=== PATIENT | male | born 1955 | race Hispanic/Latino ===

== ENCOUNTER 2018-02-09 10:20 | Inpatient (IN) | payer MEDICAID, SELFPAY ==
[~2018-02-09 10:20] MED LIST: Iopamidol 370 76% 100 ML VIAL ONE
[2018-02-09] MEDS ORDERED: Furosemide 40 MG/4 ML VIAL ONE (11:06)
[2018-02-09 11:50] LABS: #Basophils 0.1 thou/uL (0.0-0.2); #Eosinphils 0.3 thou/uL (0.0-0.7); White Blood Cell (WBC) Count 9.5 thou/uL (4.8-10.8)
[2018-02-09 11:58] LABS: INR-International Normal Ratio 1.4; Prothrombin Time 17.3 SEC (12.0-14.7)
[2018-02-09 11:59] LABS: PTT 34.2 SEC (22.9-36.1)
[2018-02-09 12:00] LABS: #Lymphocytes 2.7 thou/uL (1.20-3.40); #Monocytes 1.1 thou/uL (0.11-0.59); #Neutrophils 5.4 thou/uL (1.40-6.50); %Basophils 0.8 % (0.0-1.0); %Eosinophils 2.8 % (0.0-10.0); %Lymphocytes 28.3 % (21.0-51.0); %Monocytes 11.6 % (0.0-10.0); %Neutrophils 56.6 % (42.0-75.0); Hemoglobin 15.3 g/dL (14.0-18.0); Mean Corpuscular HGB CONC 32.5 g/dL (32.0-36.0); Mean Corpuscular Hemoglobin 31.1 pg (27.0-31.0); Mean Corpuscular Volume 95.8 fL (78.0-98.0); Mean Platelet Volume 11.8 fL (7.4-10.4); Platelet Count 161 thou/uL (130-400); RBC Distribution Width 13.4 % (11.5-14.5); Red Blood Cell (RBC) Count 4.91 mill/uL (4.70-6.10)
--- NOTE | 2018-02-09 12:04 | RAD ---
PORTABLE AP CHEST RADIOGRAPH: Date: 02-09-18 History: Shortness of breath. Difficulty breathing. Comparison: None available. FINDINGS: The cardiac silhouette is enlarged. Pulmonary vasculature is within normal limits. Lungs are clear. O sseous structures are intact. IMPRESSION: 1. No acute cardiopulmonary process. 2. Cardiomegaly. POS: [facility]
[2018-02-09 12:07] LABS: D-Dimer Test 4.18 *mcg/mL (0.27-0.43)
[2018-02-09 12:20] LABS: ALT (SGPT) 18 U/L (8-55); AST (SGOT) 39 U/L (5-34); Albumin 3.6 g/dL (3.4-4.8); Alkaline Phosphatase 165 U/L (40-150); Anion Gap 12 mmol/L (10-20); BUN (Urea Nitrogen) 17 mg/dL (8.4-25.7); CK (CPK) 111 U/L (30-200); Calc. Creatinine Clearance 0 mL/min (70-130); Calcium 8.7 mg/dL (7.8-10.44); Carbon Dioxide 23 mmol/L (23-31); Chloride 105 mmol/L (98-107); Estimated GFR-MDRD Greater than 90; Globulin 3.4 g/dL (2.4-3.5); Glucose 94 mg/dL (80-115); Lipase 20 U/L (8-78); Potassium 4.2 mmol/L (3.5-5.1); Sodium 136 mmol/L (136-145)
[2018-02-09 12:25] LABS: CKMB 4.1 ng/mL (0-6.6); Troponin I 0.045 ng/mL (< 0.028)
--- NOTE | 2018-02-09 13:52 | ULT ---
RIGHT UPPER QUADRANT ULTRASOUND: Date: 02-09-18 History: Elevated liver enzymes and abdominal distension. Comparison: None available. FINDINGS: Gallbladder has a normal appearance. No gallbladder calculi are seen. There is no gallbladder wall th ickening or pericholecystic fluid. The common duct measures 0.4 cm in diameter which is within normal limits. Liver demonstrates a grossly normal sonographic appearance. No focal hepatic lesion is seen. Some of the images question the hepatic echotexture, but additional obtained images demonstrate a more normal appearance of the liver and findings could be related to technique. The majority of the pancreas is obscured by bowel gas. The very limited visualized portion of the manzanares creatic head demonstrate a grossly normal sonographic appearance. The visualized portions of the IVC and right kidney demonstrate a normal sonographic appearance. The right kidney measures 11.4 cm in le ngth. There is a small amount of intraperitoneal free fluid and suggestion of a small right pleural effusio n, incompletely imaged or evaluated. IMPRESSION: 1. No gallbladder calculi are seen. The common duct is normal in caliber. 2. Nonvisualization of the majority of the pancreas. 3. Small amount of ascites with suggestion of small right pleural effusion. POS: [facility]
--- NOTE | 2018-02-09 14:18 | CT ---
CT ARTERIOGRAM CHEST WITH IV CONTRAST AND 3D MIP IMAGING: Date: 02/09/18 HISTORY: Chest pain. Dyspnea. FINDINGS: There is good contrast opacification of the pulmonary arteries. Aorta is not opacified at the time of imaging. Normal branching of the great vessels at the aortic arch. Minimal arterial calcification. Small bilateral pleural effusions and interstitial thickening. No pneumothorax or bulky mediastinal a denopathy. Reactive appearing right axillary lymph node measures up to 2.2 cm. Within a partially vis ualized upper abdomen, free fluid and gallstones are apparent. IMPRESSION: 1. No CT evidence of pulmonary embolus. 2. Small bilateral pleural effusions. Cause is not evident. 3. Cholelithiasis. 4. Ascites. POS: [facility]
[2018-02-09] MEDS ORDERED: Magnesium Sulfate 2 GM/100 ML BAG ONE (14:50)
[2018-02-09 15:31] LABS: Troponin I 0.058 ng/mL (< 0.028)
[2018-02-09 16:34] LABS: Bilirubin Negative (Negative); Blood, Urine Moderate (Negative); Clarity CLEAR (Clear); Glucose, Urine (Dipstick) Negative (Negative); Leukocyte Negative (Negative); Nitrite Negative (Negative); Protein, Urine (Dipstick) Negative (Neg-Trace); Specific Gravity, Urine 1.015 (1.002-1.036); pH, Urine 6.5 (5.0-9.0)
[2018-02-09 16:36] LABS: Bacteria/HPF None Seen HPF (None Seen); Hyaline Casts/LPF 0-3 HYALINE CAST LPF (0-3 Hyaline); Pathc Cast-AUWi Flag 0.14 (0-2.49); RBC/HPF 21-50 HPF (0-3); Squamous Epithelial None Seen HPF (0-3); WBC/HPF None Seen HPF (0-3)
[2018-02-09] MEDS ORDERED: Acetaminophen 325 MG TAB PO PRN (16:36)
[2018-02-09] MEDS ORDERED: Ondansetron ODT 4 MG TAB PO PRN (16:36)
[2018-02-09] MEDS ORDERED: Bisacodyl 5 MG TAB PO PRN (16:36)
[2018-02-09 17:40] VITALS: BMI 33.5
[2018-02-09] MEDS: Warfarin Sodium 5 MG TAB PO SCH (17:57)
[2018-02-09 18:48] LABS: Troponin I 0.036 ng/mL (< 0.028)
--- NOTE | 2018-02-09 22:52 | HP ---
DATE OF ADMISSION: 02/09/2018 CHIEF COMPLAINT: Increasing shortness of breath and swelling of the body. HISTORY OF PRESENT ILLNESS: This is a 62-year-old male who came in as a [facility] from [facility] the complaints of increasing of shortness of breath, weight gain and swelling of overall body habit us. The patient has no primary care physician, has no followups in the past, really does not know if he has any other health issues. Past 1 week, the patient has noticed increasing shortness of breath and weight gain with swelling of the lower extremities and also the abdomen. The patient when arriv ed to the ER, was found to be in atrial fibrillation with rapid ventricular response with a heart rat e of 120. He was initially treated with 10 mg of IV diltiazem, which brought down the heart rate to 90s. The patient's atrial fibrillation persisted after the diltiazem was given. Patient also was tr eated with 40 mg of IV Lasix with which he had 4 cans of urination and since then he started feeling a little better. He was breathing a little more easily. He also felt his abdomen became a little mo re soft after the IV Lasix was given and he had urinated. PAST MEDICAL HISTORY: No significant past medical history. The patient has no followup with the [facility]. He is not taking any medications at home. PAST SURGICAL HISTORY: History of appendectomy in the past. ALLERGIES: No known allergies. REVIEW OF SYSTEMS: Constitutional: No fever or chills. No malaise. No body aches. HEENT: No com plaints of eye pain or eye discharge or vision changes. No rhinorrhea. No sore throat. No ear, nos e or throat pain. Cardiovascular: No chest pain or palpitations. Respiratory: Positive for shortn ess of breath. No complaints of wheezes or cough. Gastrointestinal: Complains of distention of abd omen. No nausea or vomiting. Good appetite. Musculoskeletal: No complaints of joint pain or swell ing. Skin: No rashes or no skin changes. Neurologic: No complaints of weakness, no loss of sensat ion or motor strength. PHYSICAL EXAMINATION: VITAL SIGNS: Blood pressure is around 130/90, heart rate 96, respiratory rate 22, pulse ox on room a ir is around 92%. CONSTITUTIONAL VITAL SIGNS: As reviewed. GENERAL: The patient looks slightly short of breath. HEENT: Normocephalic, atraumatic head. External ear and tympanic membranes with the external canal is within normal limits. No discharge noted. Eyelids and conjunctivae is within normal limits. Pup ils are round and reactive to light. NECK: Trachea is midline. No lymphadenopathy is noted. RESPIRATORY AND CHEST: No rales or no wheezes. Good air entry. CARDIAC: Irregular rhythm, tachycardia. No murmurs heard. ABDOMEN: Firm, distended, no tenderness, no rigidity, no peritoneal signs. MUSCULOSKELETAL: No joint swelling or tenderness; +4 pedal edema that is pitting in nature. NEUROLOGIC: Cranial nerves are intact. Gait within normal limits. No sensory or motor deficits. ASSESSMENT AND PLAN: 1. New onset atrial fibrillation. The patient was treated in the ER with IV diltiazem. I will star t the patient on p.o. metoprolol and will also consult a grants director. 2. Obtain echocardiogram. Continue with IV Lasix with strict fluid restriction of 1500 mL per day. I have also consulted dietitian to help the patient with a low salt diet. 3. Elevated D-dimers for which a CTA of the chest was obtained. No PE was noted. 4. We will start patient on Coumadin and followup on a daily PT and INR. 5. The elevated BNP might be because of hyperdynamic circulation with the atrial fibrillation. I am expecting BNP to return back to the normal with IV Lasix diuresis and also with better rate control of the heart. 6. Cardiology consult has been done. 7. The patient to be discharged once the cardiac workup is complete.
[2018-02-10] MEDS: Furosemide 40 MG/4 ML VIAL SLOW IVP SCH ×2 (05:39→14:19)
[2018-02-10 05:45] LABS: INR-International Normal Ratio 1.4; Prothrombin Time 17.1 SEC (12.0-14.7)
[2018-02-10 06:01] LABS: Anion Gap 11 mmol/L (10-20); BUN (Urea Nitrogen) 17 mg/dL (8.4-25.7); Calc. Creatinine Clearance 140 mL/min (70-130); Calcium 8.3 mg/dL (7.8-10.44); Carbon Dioxide 24 mmol/L (23-31); Chloride 105 mmol/L (98-107); Estimated GFR-MDRD Greater than 90; Glucose 85 mg/dL (80-115); Potassium 4.2 mmol/L (3.5-5.1); Sodium 136 mmol/L (136-145)
[2018-02-10] MEDS ORDERED: Enoxaparin Sodium 40 MG/0.4 ML SYRINGE SC SCH (09:00)
--- NOTE | 2018-02-10 17:07 | PDOC.PN ---
- Subjective Encounter Start Date: 02/10/18 Encounter Start Time: 17:06 Mr. Shannon was seen today in follow-up of AFIB with RVR. He is still having a little shortness of breath and wheezing, but otherwise ok. - Objective Resuscitation Status: Resuscitation Status FULL:Full Resuscitation MAR Reviewed: Yes Vital Signs & Weight: Vital Signs (12 hours) Temp Pulse Resp BP Pulse Ox 02/10/18 16:47 97.4 F L 95 18 115/72 94 L 02/10/18 12:30 99 02/10/18 11:50 97.8 F 92 18 139/87 99 02/10/18 08:05 97.9 F 101 H 18 96 02/10/18 07:00 97.9 F 101 H 18 128/92 H 96 Weight Weight 222 lb 14.4 oz I&O: 02/09/18 02/10/18 02/11/18 06:59 06:59 06:59 Intake Total 240 Output Total 200 Balance 40 Result Diagrams: 02/09/18 10:48 02/10/18 05:15 Phys Exam - Physical Examination HEENT: PERRLA Respiratory: no wheezing, no rhonchi + rales at both bases, good breath sounds Cardiovascular: no significant murmur, no rub, irregular no gallop Gastrointestinal: soft, non-tender, no distention, positive bowel sounds Musculoskeletal: pulses present, edema present 2+ pitting edema bilaterally Neurological: non-focal Dx/Plan (1) Atrial fibrillation with RVR Code(s): I48.91 - UNSPECIFIED ATRIAL FIBRILLATION Status: Acute - Plan * AFIB with RVR- new onset- his heart rate is controlled, but he is still volume overloaded * . Will continue IV Lasix, and monitor renal function and electrolytes * Await echo results * Anticoagulation- will continue coumadin therapy, and monitor his PT/INR, and consult disease management for coumadin education.
[2018-02-10] MEDS: Warfarin Sodium 5 MG TAB PO SCH (17:46)
--- NOTE | 2018-02-10 18:39 | CON ---
DATE OF CONSULTATION: 02/10/2018 REASON FOR CONSULTATION: Congestive heart failure and atrial fibrillation. HISTORY OF PRESENT ILLNESS: Mr. Shannon is a 62-year-old gentleman with no previous history of underly ing coronary disease or previous history of CAD, who recently presented with increased lower extremit y edema and abdominal discomfort. No chest pain or pressure noted. This occurred over the last renny ral weeks. He has no previous history of tobacco abuse, diabetes mellitus and hypertension. He was seen and evaluated in the emergency room and was found to have atrial fibrillation with RVR. He was placed on IV Cardizem and subsequently admitted. PAST SURGICAL HISTORY: Appendectomy. ALLERGIES: None. HOME MEDICATIONS: None. REVIEW OF SYSTEMS: A 10-point review of systems is reviewed and as above, otherwise negative. PHYSICAL EXAMINATION: VITAL SIGNS: Blood pressure 115/72, pulse 95, temperature 97.4. GENERAL: Patient is a pleasant male who is in no acute distress. The patient appears his stated age . NEUROLOGIC: The patient is alert and oriented times 3 with no focal neurologic deficits. HEENT: Sclerae without icterus. Mouth has moist mucous membranes with normal pallor. NECK: No JVD. Carotid upstroke brisk. No bruits bilaterally. LUNGS: Clear to auscultation with unlabored respirations. BACK: No scoliosis or kyphosis. CARDIAC: Irregularly irregular. ABDOMEN: Soft, nontender, nondistended. No peritoneal signs present. No hepatosplenomegaly. No ab normal striae. EXTREMITIES: 2+ femoral and 2+ dorsalis pedis pulses. No cyanosis, clubbing, or edema. SKIN: No gross abnormalities. PERTINENT LABS: Hemoglobin 15.3, hematocrit 47. Creatinine 0.78. BNP of 604. IMPRESSION: 1. New onset atrial fibrillation. 2. Acute congestive heart failure. RECOMMENDATIONS: 1. Continue IV Lasix at 40 mg IV b.i.d. 2. Discontinue Coumadin. 3. Add Lovenox 1 mg/kilo subcu q.12 hours. 4. Add low dose beta nolan therapy. Given his LVEF of 30%-35%, would recommend coronary angiography plus PCI. I discussed the procedure in full detail with Mr. Shannon. The risks included but not limited to the following: , stroke, [place], need for emergency surgery, loss of limb, bleeding, and infection, as well as a reaction to the d ye causing kidney failure and needing long-term dialysis. Other risks include acute stent thrombosis and restenosis, vessel dissection, perforation, need for emergency surgery in addition to distal embo lization causing chronic foot discomfort as well as amputation. All questions about the procedure we re answered. Given the above, the patient agreed to proceed with procedure. Would like to julieta howard to proceeding.
[2018-02-10] MEDS ORDERED: Sodium Chloride 0.9% 10 ML ONE (20:12)
[2018-02-10] MEDS: Carvedilol 3.125 MG TAB PO SCH (20:45)
[2018-02-10] MEDS: Enoxaparin Sodium 100 MG/ML SYRINGE SC SCH (20:45)
[2018-02-11] MEDS ORDERED: Sodium Chloride 0.9% 10 ML ONE ×2 (05:18→20:42)
[2018-02-11 05:45] LABS: INR-International Normal Ratio 1.4; Prothrombin Time 16.8 SEC (12.0-14.7)
[2018-02-11 06:21] LABS: Anion Gap 14 mmol/L (10-20); BUN (Urea Nitrogen) 17 mg/dL (8.4-25.7); Calc. Creatinine Clearance 135 mL/min (70-130); Calcium 8.4 mg/dL (7.8-10.44); Carbon Dioxide 22 mmol/L (23-31); Chloride 104 mmol/L (98-107); Estimated GFR-MDRD Greater than 90; Glucose 95 mg/dL (80-115); Potassium 3.7 mmol/L (3.5-5.1); Sodium 136 mmol/L (136-145)
[2018-02-11] MEDS: Furosemide 40 MG/4 ML VIAL SLOW IVP SCH ×2 (06:21→14:41)
[2018-02-11 06:26] LABS: Troponin I 0.045 ng/mL (< 0.028)
[2018-02-11] MEDS: Carvedilol 3.125 MG TAB PO SCH ×2 (09:32→21:22)
[2018-02-11] MEDS ORDERED: Communication Order-Pharmacy FS SCH (10:30)
[2018-02-11 10:54] LABS: #Basophils 0.1 thou/uL (0.0-0.2); #Eosinphils 0.3 thou/uL (0.0-0.7); #Lymphocytes 2.3 thou/uL (1.20-3.40); #Monocytes 0.8 thou/uL (0.11-0.59); #Neutrophils 4.6 thou/uL (1.40-6.50); %Eosinophils 3.9 % (0.0-10.0); %Lymphocytes 28.3 % (21.0-51.0); %Monocytes 9.9 % (0.0-10.0); Hemoglobin 14.9 g/dL (14.0-18.0); Mean Corpuscular HGB CONC 31.7 g/dL (32.0-36.0); Mean Corpuscular Hemoglobin 30.5 pg (27.0-31.0); Mean Corpuscular Volume 96.2 fL (78.0-98.0); Mean Platelet Volume 10.6 fL (7.4-10.4); Platelet Count 168 thou/uL (130-400); RBC Distribution Width 13.5 % (11.5-14.5); Red Blood Cell (RBC) Count 4.88 mill/uL (4.70-6.10); White Blood Cell (WBC) Count 8.1 thou/uL (4.8-10.8)
[2018-02-11] MEDS: Enoxaparin Sodium 100 MG/ML SYRINGE SC SCH ×2 (10:58→21:22)
--- NOTE | 2018-02-11 11:49 | PDOC.PN ---
- Subjective Encounter Start Date: 02/11/18 Encounter Start Time: 11:48 Mr. Shannon was seen today in follow-up of Atrial fibrillation, and CHF exacerbation. He says he feels fine, and does not have any complaints. the swelling in his legs has improved some. - Objective Resuscitation Status: Resuscitation Status FULL:Full Resuscitation MAR Reviewed: Yes Vital Signs & Weight: Vital Signs (12 hours) Temp Pulse Resp BP Pulse Ox 02/11/18 11:30 97.9 F 84 18 114/75 95 02/11/18 07:54 98 F 97 18 115/83 94 L 02/11/18 06:16 107 H 20 131/89 02/11/18 03:21 97.8 F 97 18 101/80 97 Weight Weight 217 lb 8 oz I&O: 02/10/18 02/11/18 02/12/18 06:59 06:59 06:59 Intake Total 240 864 Output Total 200 1700 Balance 40 -836 Result Diagrams: 02/11/18 10:46 02/11/18 05:18 Phys Exam - Physical Examination HEENT: PERRLA Respiratory: no wheezing, no rales, no rhonchi, clear to auscultation bilateral Cardiovascular: no significant murmur, no rub, irregular no gallop Gastrointestinal: soft, non-tender, no distention, positive bowel sounds Musculoskeletal: edema present 2+ pitting edema in both extremities Neurological: non-focal, normal sensation, moves all 4 limbs Dx/Plan (1) Atrial fibrillation with RVR Code(s): I48.91 - UNSPECIFIED ATRIAL FIBRILLATION Status: Acute (2) Acute systolic congestive heart failure, NYHA class 2 Code(s): I50.21 - ACUTE SYSTOLIC (CONGESTIVE) HEART FAILURE Status: Acute (3) Acute respiratory failure with hypoxia Code(s): J96.01 - ACUTE RESPIRATORY FAILURE WITH HYPOXIA Status: Acute - Plan * Acute respiratory failure- improved * Atrial fibrillation- his heart rate is controlled, on Carvediolol * Acute systolic heart failure- newly detected- plan is for cardiac cath, and will continue diuresis with IV Lasix, and will add a lose dose JAM- I
--- NOTE | 2018-02-11 13:13 | PRG ---
DATE OF SERVICE: 02/11/2018 HISTORY OF PRESENT ILLNESS: Mr. Shannon is doing well. He states he continues to diurese. He continued to have lower extremity edema. No PND, orthopnea or other associated symptoms. PHYSICAL EXAMINATION: VITAL SIGNS: Blood pressure 141/75, pulse 84, temperature 97.9. LUNGS: Clear to auscultation. CARDIAC: Irregularly irregular. ABDOMEN: Soft, nontender, nondistended. EXTREMITIES: Warm and 2+ pitting edema. IMPRESSION: Acute systolic heart failure. RECOMMENDATIONS: 1. Continue diuresis. 2. Proceed with angiography in a.m. I discussed the procedure in full detail with Mr. Shannon. Please see initial consultation. He has agreed to the above. I also discussed LifeVest with Mr. Shannon. He likes to discuss his family prior to deciding. He understands the financial consequences. RIYA
[2018-02-12] MEDS ORDERED: Sodium Chloride 0.9% 10 ML ONE (05:34)
[2018-02-12] MEDS: Furosemide 40 MG/4 ML VIAL SLOW IVP SCH ×2 (05:41→13:18)
[2018-02-12] MEDS: Lisinopril 2.5 MG TAB PO SCH (05:42)
[2018-02-12] MEDS: Carvedilol 3.125 MG TAB PO SCH (05:44)
[2018-02-12] MEDS: Sodium Chloride 0.9% 1,000 ML IV SCH ×2 (05:50→15:36)
[2018-02-12 05:51] LABS: INR-International Normal Ratio 1.4; Prothrombin Time 16.8 SEC (12.0-14.7)
[2018-02-12 05:57] LABS: Anion Gap 12 mmol/L (10-20); BUN (Urea Nitrogen) 17 mg/dL (8.4-25.7); Calc. Creatinine Clearance 118 mL/min (70-130); Calcium 8.5 mg/dL (7.8-10.44); Carbon Dioxide 27 mmol/L (23-31); Chloride 102 mmol/L (98-107); Estimated GFR-MDRD 90; Glucose 106 mg/dL (80-115); Potassium 3.5 mmol/L (3.5-5.1); Sodium 137 mmol/L (136-145)
[2018-02-12] MEDS ORDERED: Lidocaine 1% (PF) 30 ML VIAL ONE (06:29)
[2018-02-12] MEDS ORDERED: Nitroglycerin 100MG/250ML BOT 250 ML ONE (07:15)
[2018-02-12] MEDS ORDERED: Verapamil 5 MG/2 ML VIAL ONE ×2 (07:15→07:16)
[2018-02-12] MEDS ORDERED: Heparin 10,000 UNITS/1 ML VIAL ONE (07:15)
[2018-02-12] MEDS ORDERED: Midazolam HCl 2 mg/2 ml Vial ONE (07:30)
[2018-02-12] MEDS ORDERED: Fentanyl 100 MCG/2 ML VIAL ONE (07:30)
[2018-02-12] MEDS ORDERED: Nitroglycerin 0.4 MG TAB (25 Tab Bottle) SL PRN (07:50)
[2018-02-12] MEDS ORDERED: traMADol HCl 50 MG TAB PO PRN (07:50)
[2018-02-12] MEDS ORDERED: Acetaminophen/Codeine 30-300mg Tablet PO PRN ×2 (07:50)
[2018-02-12] MEDS ORDERED: Sodium Chloride 0.9% 200 ML IV SCH (08:00)
--- NOTE | 2018-02-12 10:26 | PDOC.PN ---
- Subjective Encounter Start Date: 02/12/18 Encounter Start Time: 10:24 Mr. Shannon was seen today in follow-up. He is breathing better, and notes decreased swelling in both legs. He has not had any trouble overnight. - Objective Resuscitation Status: Resuscitation Status FULL:Full Resuscitation MAR Reviewed: Yes Vital Signs & Weight: Vital Signs (12 hours) Temp Pulse Resp BP Pulse Ox 02/12/18 08:00 97.5 F L 82 18 129/73 94 L 02/12/18 07:05 96 02/12/18 05:47 88 20 122/88 02/12/18 04:00 97.7 F 67 14 109/63 93 L Weight Weight 211 lb 14.4 oz I&O: 02/11/18 02/12/18 02/13/18 06:59 06:59 06:59 Intake Total 864 1664 Output Total 1700 2900 Balance -836 -5978 Result Diagrams: 02/11/18 10:46 02/12/18 05:27 Phys Exam - Physical Examination HEENT: PERRLA Respiratory: no wheezing, no rales, no rhonchi, clear to auscultation bilateral Cardiovascular: RRR, no significant murmur, no rub no gallop Gastrointestinal: soft, non-tender, no distention, positive bowel sounds Musculoskeletal: edema present 2+ pitting edema in both legs, diminished from Dx/Plan (1) Atrial fibrillation with RVR Code(s): I48.91 - UNSPECIFIED ATRIAL FIBRILLATION Status: Acute (2) Acute systolic congestive heart failure, NYHA class 2 Code(s): I50.21 - ACUTE SYSTOLIC (CONGESTIVE) HEART FAILURE Status: Acute (3) Acute respiratory failure with hypoxia Code(s): J96.01 - ACUTE RESPIRATORY FAILURE WITH HYPOXIA Status: Acute - Plan * Atrial Fibrillation- his heart rate is better on Carvediolol * anticoagulation as outpatient- I spoke with the patient and family at bedside , he plans to go to [facility] clinic after discharge, and I explained the improtance of frequent follow-up's to manage not only the anticoagulation, but also the heart failure as well * Acute systolic heart failure- improved, his weight is down from 222, to 211, continue IV Lasix, and low dose Lisinopril and Carvediolol * Plan for cardiac cath today.
[2018-02-12] MEDS ORDERED: Iopamidol 370 76% 100 ML VIAL ONE (13:48)
[2018-02-12] MEDS: Carvedilol 6.25 MG TAB PO SCH (20:31)
[2018-02-13] MEDS: Furosemide 40 MG/4 ML VIAL SLOW IVP SCH ×2 (05:41→14:49)
[2018-02-13] MEDS: Carvedilol 6.25 MG TAB PO SCH ×2 (09:16→21:29)
[2018-02-13] MEDS: Lisinopril 2.5 MG TAB PO SCH (09:17)
[2018-02-13] MEDS ORDERED: Enoxaparin Sodium 100 MG/ML SYRINGE SC SCH (09:45)
--- NOTE | 2018-02-13 09:47 | PDOC.PN ---
- Subjective Encounter Start Date: 02/13/18 Encounter Start Time: 07:00 Subjective: no sob or palp -: is ambulating in room - Objective Resuscitation Status: Resuscitation Status FULL:Full Resuscitation MAR Reviewed: Yes Vital Signs & Weight: Vital Signs (12 hours) Temp Pulse Resp BP Pulse Ox 02/13/18 08:40 97.7 F 96 20 107/72 96 02/13/18 03:39 97.9 F 62 16 120/67 97 Weight Weight 209 lb 3.2 oz I&O: 02/12/18 02/13/18 02/14/18 06:59 06:59 06:59 Intake Total 1664 660 Output Total 2900 1100 Balance -8016 440 Result Diagrams: 02/11/18 10:46 02/12/18 05:27 Phys Exam - Physical Examination HEENT: PERRLA, moist MMs Neck: no JVD, supple Respiratory: no wheezing rales+ Cardiovascular: no significant murmur, irregular Gastrointestinal: soft, non-tender, positive bowel sounds Musculoskeletal: pulses present, edema present Neurological: non-focal, moves all 4 limbs Psychiatric: normal affect, A&O x 3 Dx/Plan (1) Acute systolic congestive heart failure, NYHA class 2 Code(s): I50.21 - ACUTE SYSTOLIC (CONGESTIVE) HEART FAILURE Status: Acute Comment: ef of 25% (2) Atrial fibrillation with RVR Code(s): I48.91 - UNSPECIFIED ATRIAL FIBRILLATION Status: Acute (3) Demand ischemia of myocardium Code(s): I24.8 - OTHER FORMS OF ACUTE ISCHEMIC HEART DISEASE Status: Acute - Plan is on lovenox for afib -: cath showed no sig disease -: on coreg, lisinopril -: iv lasix, still has edema and rales -: labs in am * . Review of Systems - Medications/Allergies Allergies/Adverse Reactions: Allergies Allergy/AdvReac Type Severity Reaction Status Date / Time No Known Allergies Allergy Unverified 02/09/18 17:06 Medications: Current Medications Acetaminophen (Tylenol) 650 mg PO Q4H PRN PRN Reason: Headache/Fever or Pain Acetaminophen/Codeine Phosphate (Tylenol #3) 1 tab PO Q4H PRN PRN Reason: Mild Pain (1-3) Acetaminophen/Codeine Phosphate (Tylenol #3) 2 tab PO Q4H PRN PRN Reason: Moderate Pain (4-6) Bisacodyl (Dulcolax) 10 mg PO DAILYPRN PRN PRN Reason: Constipation Carvedilol (Coreg) 6.25 mg PO BID [facility] Last Admin: 02/13/18 09:16 Dose: 6.25 mg Enoxaparin Sodium (Lovenox) 100 mg SC 0900,2100 [facility] Enoxaparin Sodium (Lovenox) 100 mg SC ONE [facility] Stop: 02/13/18 10:30 Furosemide (Lasix) 40 mg SLOW IVP 0600,1400 [facility] Last Admin: 02/13/18 05:41 Dose: 40 mg Lisinopril (Zestril) 2.5 mg PO DAILY [facility] Last Admin: 02/13/18 09:17 Dose: 2.5 mg Nitroglycerin (Nitrostat) 0.4 mg SL Q5MIN PRN PRN Reason: Chest Pain Ondansetron HCl (Zofran Odt) 4 mg PO Q6H PRN PRN Reason: Nausea/Vomiting Sodium Chloride (Flush - Normal Saline) 10 ml IVF Q12HR [facility] Last Admin: 02/13/18 09:17 Dose: 10 ml Sodium Chloride (Flush - Normal Saline) 10 ml IVF PRN PRN PRN Reason: Saline Flush Tramadol HCl (Ultram) 50 mg PO Q6H PRN PRN Reason: Moderate Pain (4-6)
[2018-02-13] MEDS ORDERED: Warfarin Sodium 5 MG TAB PO SCH (17:00)
[2018-02-13] MEDS: Enoxaparin Sodium 100 MG/ML SYRINGE SC SCH (21:29)
[2018-02-14] MEDS: Furosemide 40 MG/4 ML VIAL SLOW IVP SCH (05:55)
[2018-02-14 08:46] LABS: Anion Gap 14 mmol/L (10-20); BUN (Urea Nitrogen) 16 mg/dL (8.4-25.7); Calc. Creatinine Clearance 104 mL/min (70-130); Calcium 9.2 mg/dL (7.8-10.44); Carbon Dioxide 29 mmol/L (23-31); Chloride 99 mmol/L (98-107); Estimated GFR-MDRD 85; Glucose 95 mg/dL (80-115); Potassium 3.4 mmol/L (3.5-5.1); Sodium 139 mmol/L (136-145)
[2018-02-14] MEDS: Carvedilol 6.25 MG TAB PO SCH ×2 (08:49→21:07)
[2018-02-14] MEDS: Lisinopril 2.5 MG TAB PO SCH ×2 (08:50→21:07)
[2018-02-14 09:18] LABS: #Basophils 0.1 thou/uL (0.0-0.2); #Eosinphils 0.2 thou/uL (0.0-0.7); #Lymphocytes 2.2 thou/uL (1.20-3.40); #Monocytes 0.6 thou/uL (0.11-0.59); #Neutrophils 2.6 thou/uL (1.40-6.50); %Basophils 1.3 % (0.0-1.0); %Lymphocytes 38.9 % (21.0-51.0); %Monocytes 9.8 % (0.0-10.0); %Neutrophils 45.9 % (42.0-75.0); Mean Corpuscular HGB CONC 31.8 g/dL (32.0-36.0); Mean Corpuscular Hemoglobin 30.5 pg (27.0-31.0); Mean Corpuscular Volume 96.1 fL (78.0-98.0); Mean Platelet Volume 11.1 fL (7.4-10.4); Platelet Count 174 thou/uL (130-400); Red Blood Cell (RBC) Count 5.23 mill/uL (4.70-6.10); White Blood Cell (WBC) Count 5.5 thou/uL (4.8-10.8)
[2018-02-14] MEDS: Enoxaparin Sodium 100 MG/ML SYRINGE SC SCH ×2 (09:46→21:07)
--- NOTE | 2018-02-14 10:47 | PDOC.PN ---
- Subjective Encounter Start Date: 02/14/18 Encounter Start Time: 07:40 Subjective: no c/o sob or palp -: is ambulating in room - Objective Resuscitation Status: Resuscitation Status FULL:Full Resuscitation MAR Reviewed: Yes Vital Signs & Weight: Vital Signs (12 hours) Temp Pulse Resp BP BP Pulse Ox 02/14/18 08:50 68 148/92 H 02/14/18 08:49 148/92 H 02/14/18 08:05 98.3 F 68 18 148/92 H 98 02/14/18 04:00 97.4 F L 85 18 117/75 94 L Weight Weight 195 lb 3 oz I&O: 02/13/18 02/14/18 02/15/18 06:59 06:59 06:59 Intake Total 660 1057 Output Total 1100 1815 Balance -440 758 Result Diagrams: 02/14/18 09:06 02/14/18 07:53 Phys Exam - Physical Examination HEENT: PERRLA, moist MMs Neck: no JVD, supple Respiratory: no wheezing rales b/l Cardiovascular: no significant murmur, irregular Gastrointestinal: non-tender, positive bowel sounds Musculoskeletal: pulses present, edema present Neurological: non-focal, moves all 4 limbs Psychiatric: normal affect, A&O x 3 Dx/Plan (1) Acute systolic congestive heart failure, NYHA class 2 Code(s): I50.21 - ACUTE SYSTOLIC (CONGESTIVE) HEART FAILURE Status: Acute Comment: ef of 25% (2) Atrial fibrillation with RVR Code(s): I48.91 - UNSPECIFIED ATRIAL FIBRILLATION Status: Acute (3) Demand ischemia of myocardium Code(s): I24.8 - OTHER FORMS OF ACUTE ISCHEMIC HEART DISEASE Status: Acute - Plan is on iv lasix -: lovenox and coumadin, increase coumadin dose to 7.5mg today -: continue coreg, lisinopril -: will need PCP for f/u with coumadin/inr checks ?[facility] -: may wear trent hose to reduce ankle and leg edema * . Review of Systems - Medications/Allergies Allergies/Adverse Reactions: Allergies Allergy/AdvReac Type Severity Reaction Status Date / Time No Known Allergies Allergy Unverified 02/09/18 17:06 Medications: Current Medications Acetaminophen (Tylenol) 650 mg PO Q4H PRN PRN Reason: Headache/Fever or Pain Acetaminophen/Codeine Phosphate (Tylenol #3) 1 tab PO Q4H PRN PRN Reason: Mild Pain (1-3) Acetaminophen/Codeine Phosphate (Tylenol #3) 2 tab PO Q4H PRN PRN Reason: Moderate Pain (4-6) Bisacodyl (Dulcolax) 10 mg PO DAILYPRN PRN PRN Reason: Constipation Carvedilol (Coreg) 6.25 mg PO BID [facility] Last Admin: 02/14/18 08:49 Dose: 6.25 mg Enoxaparin Sodium (Lovenox) 100 mg SC 0900,2100 [facility] Last Admin: 02/14/18 09:46 Dose: 100 mg Furosemide (Lasix) 40 mg SLOW IVP 0600,1400 [facility] Last Admin: 02/14/18 05:55 Dose: 40 mg Lisinopril (Zestril) 2.5 mg PO DAILY [facility] Last Admin: 02/14/18 08:50 Dose: 2.5 mg Nitroglycerin (Nitrostat) 0.4 mg SL Q5MIN PRN PRN Reason: Chest Pain Ondansetron HCl (Zofran Odt) 4 mg PO Q6H PRN PRN Reason: Nausea/Vomiting Potassium Chloride (K-Dur) 40 meq PO ONE [facility] Sodium Chloride (Flush - Normal Saline) 10 ml IVF Q12HR [facility] Last Admin: 02/14/18 08:51 Dose: 10 ml Sodium Chloride (Flush - Normal Saline) 10 ml IVF PRN PRN PRN Reason: Saline Flush Tramadol HCl (Ultram) 50 mg PO Q6H PRN PRN Reason: Moderate Pain (4-6) Warfarin Sodium (Coumadin) 5 mg PO 1700 [facility] Last Admin: 02/13/18 17:37 Dose: 5 mg
[2018-02-14] MEDS ORDERED: Potassium Chloride 20 MEQ TAB PO SCH (11:00)
[2018-02-14 13:14] LABS: INR-International Normal Ratio 1.2
[2018-02-14] MEDS ORDERED: Warfarin Sodium 7.5 MG TAB PO SCH (17:00)
[2018-02-15 05:59] LABS: #Basophils 0.1 thou/uL (0.0-0.2); #Eosinphils 0.3 thou/uL (0.0-0.7); #Lymphocytes 2.8 thou/uL (1.20-3.40); #Monocytes 0.6 thou/uL (0.11-0.59); #Neutrophils 1.9 thou/uL (1.40-6.50); %Basophils 1.3 % (0.0-1.0); %Eosinophils 4.8 % (0.0-10.0); %Lymphocytes 49.3 % (21.0-51.0); %Monocytes 10.9 % (0.0-10.0); %Neutrophils 33.6 % (42.0-75.0); Hemoglobin 14.8 g/dL (14.0-18.0); Mean Corpuscular HGB CONC 32.1 g/dL (32.0-36.0); Mean Corpuscular Hemoglobin 30.5 pg (27.0-31.0); Mean Corpuscular Volume 94.9 fL (78.0-98.0); Platelet Count 168 thou/uL (130-400); RBC Distribution Width 13.4 % (11.5-14.5); Red Blood Cell (RBC) Count 4.88 mill/uL (4.70-6.10); White Blood Cell (WBC) Count 5.8 thou/uL (4.8-10.8)
[2018-02-15 06:02] LABS: INR-International Normal Ratio 1.2; Prothrombin Time 15.7 SEC (12.0-14.7)
[2018-02-15 06:22] LABS: Anion Gap 11 mmol/L (10-20); BUN (Urea Nitrogen) 13 mg/dL (8.4-25.7); Calc. Creatinine Clearance 110 mL/min (70-130); Calcium 8.6 mg/dL (7.8-10.44); Carbon Dioxide 26 mmol/L (23-31); Chloride 102 mmol/L (98-107); Estimated GFR-MDRD Greater than 90; Glucose 91 mg/dL (80-115); Potassium 3.8 mmol/L (3.5-5.1); Sodium 135 mmol/L (136-145)
[2018-02-15] MEDS: Lisinopril 2.5 MG TAB PO SCH (08:59)
[2018-02-15] MEDS: Enoxaparin Sodium 100 MG/ML SYRINGE SC SCH (09:00)
[2018-02-15] MEDS: Carvedilol 6.25 MG TAB PO SCH (09:00)
[2018-02-15 11:28] VITALS: BP 117/84; TEMP 98.1
--- NOTE | 2018-02-15 14:13 | PRG ---
DATE OF SERVICE: 02/15/2018 Mr. Shannon is doing well. His rate is controlled. He is currently on good medical therapy including carvedilol and lisinopril. It was decided to proceed with Coumadin therapy. His INR this morning is 1.2. He is also on Lovenox. PHYSICAL EXAMINATION: VITAL SIGNS: Blood pressure 117/84, pulse 88, temperature 98.1. GENERAL: Patient is a pleasant male who is in no acute distress. The patient appears his stated age. NEUROLOGIC: The patient is alert and oriented times 3 with no focal neurologic deficits. HEENT: Sclerae without icterus. Mouth has moist mucous membranes with normal pallor. NECK: No JVD. Carotid upstroke brisk. No bruits bilaterally. LUNGS: Clear to auscultation with unlabored respirations. BACK: No scoliosis or kyphosis. CARDIAC: Irregularly irregular. ABDOMEN: Soft, nontender, nondistended. No peritoneal signs present. No hepatosplenomegaly. No abn ormal striae. EXTREMITIES: 2+ femoral and 2+ dorsalis pedis pulses. No cyanosis, clubbing, or edema. SKIN: No gross abnormalities. IMPRESSION: 1. Acute systolic heart failure. 2. Atrial fibrillation. RECOMMENDATIONS: Mr. Shannon did not have significant coronary artery disease on recent angiography. At this point, I would recommend rate control with potential cardioversion in the future. I had mult iple discussions with he and his family. I discussed a LifeVest. Due to financial constraints, he i s not interested. He understands the risks. I also discussed changing from Coumadin to Xarelto. It is unlikely he will be therapeutic in the next 2-3 days and will require continued hospitalization. He is amenable to Xarelto. We will supply him with 1 month at 20 mg q.a.m. He will assess the cost issue. Could always change him to Coumadin as an outpatient. He also seeks care in [place]. He will try and obtain the medication in [place] as well. I also discussed potential cardioversion with amiodarone. I do not feel it is prudent to proceed wit h a cardioversion given that he has no immunotherapy on board. I would recommend starting immunother apy as an outpatient and potential cardioversion, but given his current financial issue, this will al so be very difficult. He does state he would try and seek further care in [place]. From my standpoint of view it would be okay to discharge home on Xarelto 20 mg q.a.m.
[2018-02-15] MEDS ORDERED: Rivaroxaban 10 MG TAB PO SCH (14:15)
--- NOTE | 2018-02-15 19:08 | DIS ---
DATE OF ADMISSION: 02/09/2018 DATE OF DISCHARGE: 02/15/2018 DISCHARGE DIAGNOSES: 1. Acute systolic congestive heart failure, NYHA class II. 2. Atrial fibrillation with rapid ventricular response, new onset. 3. Demand ischemia. 4. Nonischemic cardiomyopathy. CONSULTATIONS: Cardiology, Dr. Jcarlos Spencer and Dr. Renan Coats. PROCEDURES: 1. Cardiac catheterization in 04/2018 showed no significant coronary stenosis. 2. On 02/12/2018, echocardiogram, EF 25%-30%. HISTORY AND PHYSICAL: Mr. Shiva Bird is a 62-year-old male who was in the emergency department on 02/09/2018 for shortness of breath and swelling. Workup in the emergency department s howed atrial fibrillation with rapid ventricular response and was started on IV diltiazem and we were called for admit. HOSPITAL COURSE: The patient was seen and examined by Dr. Lacy and was continued on the diltiazem d rip and then started on p.o. metoprolol. Echocardiogram was ordered. A CT angio of the chest was ne gative and the patient was started on Coumadin. Cardiology was consulted. The patient was seen by Dr. Coats and taken to the center medical and lab director on 02/12/2018, . Serial cardiac biomarkers were minimally elevated on admission with troponin peaking at 0.058 just after admission. The patient improved with diuresis and was started on Coreg and lisinopril. He was offered a LifeVes t but ultimately refused. He was maintained here on Coumadin while his INR became more therapeutic, however, today he was switched to Xarelto [address] Coats and cleared for discharge with outpatient followup. The patient is to still get samples from Dr. Coats's office. PHYSICAL EXAMINATION: The patient was seen and examined on the day of discharge. Discharge plan and disposition was discussed with the patient face to face at the bedside. DISCHARGE MEDICATIONS: 1. Xarelto 20 mg p.o. daily to slate picker from Dr. Coats's office. 2. Coreg 6.25 mg p.o. b.i.d. Prescription sent. 3. Lisinopril 2.5 mg p.o. b.i.d. Prescription sent. FOLLOWUP APPOINTMENTS: 1. Primary care physician at [facility] within a week. 2. Dr. Renan Coats in 1-2 weeks. DISCHARGE ACTIVITY: As tolerated per cardiopulmonary limits. DISCHARGE DIET: Heart healthy recommended. DISCHARGE CONDITION: Stable. DISPOSITION: Discharged to home via private vehicle.
--- NOTE | 2018-02-20 11:30 | EKG ---
Test Reason : Blood Pressure : / mmHG Vent. Rate : 120 BPM Atrial Rate : 000 BPM P-R Int : 000 ms QRS Dur : 132 ms QT Int : 374 ms P-R-T Axes : 000 -89 024 degrees QTc Int : 528 ms Atrial fibrillation with rapid ventricular response Left axis deviation Right bundle branch block Possible Lateral infarct , age undetermined Inferior infarct , age undetermined Abnormal ECG Confirmed by KERRI BATISTA, ISABELLE ([id number]), editor publications BOB LOPEZ ([id number]) on 02/20/2018 11:30:14 AM Referred By: Confirmed By:ISABELLE MANNING MD
== END 2018-02-15 16:02 | disposition home or self-care (01) | DRG 286 ==
LOC: ERS 10:20 → ERHOLD 14:42 → 2NO 16:56
PROVIDERS: ADMIT Family Medicine; ATTEND Family Medicine
PROC: 4A023N7 Measurement of Cardiac Sampling and Pressure, Left Heart, Percutaneous Approach (ICD-10-PCS; principal; 2018-02-12)
PROC: B2111ZZ Fluoroscopy of Multiple Coronary Arteries using Low Osmolar Contrast (ICD-10-PCS; 2018-02-12)
PROC: B2151ZZ Fluoroscopy of Left Heart using Low Osmolar Contrast (ICD-10-PCS; 2018-02-12)
DX: I50.21 Acute systolic (congestive) heart failure (principal); J96.01 Acute respiratory failure with hypoxia; I24.8 Other forms of acute ischemic heart disease; I42.9 Cardiomyopathy, unspecified; I48.91 Unspecified atrial fibrillation; Z79.01 Long term (current) use of anticoagulants; I25.10 Atherosclerotic heart disease of native coronary artery without angina pectoris; Z90.49 Acquired absence of other specified parts of digestive tract
CPT/HCPCS: 36415; 71045; 71275; 76705; 80048; 80053; 81003; 81015; 82550; 82553; 83690; 83880; 84443; 84484; 85025; 85379; 85610; 85730; 93005; 93306; 93458; 93798; 96365; 96375; 96376; 99152; A4216; C1769; J1644; J1650; J1940; J2001; J2250; J3010; J3475